=== PATIENT | male | born 1995 | race Caucasian/White ===

== ENCOUNTER 2018-11-03 19:08 | Emergency (ER) | payer MEDICAID ==
[~2018-11-03] VITALS: Ht 170.2 cm; Wt 85.1 kg
[~2018-11-03 19:08] MED LIST: CLON-285 PO; DIAZ10TA PO; GENT5DRO4 LEFTEYE; LEVE10002 PO; LOPE-144 PO; ONDA4TAB6 PO; OXCA600T25 PO; POTA8TAB8 PO
[2018-11-03 19:15] VITALS: BP 118/88
--- NOTE | 2018-11-03 19:24 | NUR ---
MILLICENT PHARMACIST FOR POISON CONTROL STATED " PATIENT CAN GET UP TO 6000MG BEFORE S/S OF OD, 3000MG IS NOT GOING TO BE A PROBLEM AND TO GIVE PATIENT POISON CONTROL 1-800 #."
== END 2018-11-03 20:02 | disposition home or self-care (01) ==
LOC: ER 19:08
DX: G40.909 Epilepsy, unspecified, not intractable, without status epilepticus (principal); Z79.899 Other long term (current) drug therapy
CPT/HCPCS: 93005; 99283

== ENCOUNTER 2019-04-27 19:16 | Emergency (ER) | payer MEDICAID ==
[~2019-04-27] VITALS: Ht 167.6 cm; Wt 82.0 kg
[2019-04-27 19:50] LABS: BASOPHILS % (AUTO) 0.3 % (0-1); EOSINOPHILS # (AUTO) 0.2 X10'3 (0-0.9); EOSINOPHILS % (AUTO) 1.4 % (0-6); HEMATOCRIT 41.2 % (42.0-52.0); HEMOGLOBIN 14.1 g/dl (14.0-17.9); LYMPHOCYTES # (AUTO) 2.9 X10'3 (1.1-4.8); LYMPHOCYTES % (AUTO) 19.3 % (21-51); MEAN CORPUSCULAR HEMOGLOBIN 30.4 PG (27.0-31.0); MEAN CORPUSCULAR HGB CONC 34.3 g/dL (33.0-36.5); MEAN CORPUSCULAR VOLUME 88.7 FL (78-98); MEAN PLATELET VOLUME 6.1 FL (7.4-10.4); MONOCYTES # (AUTO) 0.9 X10'3 (0-0.9); MONOCYTES % (AUTO) 6.4 % (2-12); NEUTROPHILS # (AUTO) 10.7 X10'3 (1.8-7.7); NEUTROPHILS % (AUTO) 72.6 % (42-75); PLATELET COUNT 449 X10'3 (140-440); RED BLOOD COUNT 4.65 X10'6 (4.70-6.10); RED CELL DISTRIBUTION WIDTH 13.4 % (11.5-14.5); WHITE BLOOD COUNT 14.8 X10'3 (4.5-11.0)
[2019-04-27 20:02] LABS: ALANINE AMINOTRANSFERASE 25 U/L (12-78); ALKALINE PHOSPHATASE 72 IU/L (46-116); ANION GAP 10 (8-16); ASPARTATE AMINO TRANSFERASE 17 U/L (10-37); BILIRUBIN,TOTAL 0.2 MG/DL (0.1-1.0); BLOOD UREA NITROGEN 10 MG/DL (7-18); BUN/CREATININE RATIO 9.8 (5.4-32.0); CALCIUM 8.8 MG/DL (8.5-10.1); CHLORIDE 97 MMOL/L (99-107); CREATININE 1.02 MG/DL (0.60-1.10); GLUCOSE 111 MG/DL (70-104); POTASSIUM 3.4 MMOL/L (3.5-5.1); SODIUM 134 MMOL/L (135-145); TOTAL CARBON DIOXIDE 27.4 MMOL/L (24-32); eGFR > 90 ML/MIN
[2019-04-27] MEDS ORDERED: ketorolac trometh inj. 60 MG/2 ML VIAL IM ONE (21:30)
[2019-04-27 22:22] VITALS: BP 122/77
--- NOTE | 2019-04-27 22:26 | NUR ---
IV STATUS CANCELLED. SAGAR DRUMMOND SAYS NOT NEEDED
== END 2019-04-27 22:27 | disposition home or self-care (01) ==
LOC: ER 19:16
DX: R07.89 Other chest pain (principal); R11.2 Nausea with vomiting, unspecified; R20.0 Anesthesia of skin; F41.9 Anxiety disorder, unspecified; F32.9 Major depressive disorder, single episode, unspecified; G40.909 Epilepsy, unspecified, not intractable, without status epilepticus; Z79.899 Other long term (current) drug therapy; Z98.890 Other specified postprocedural states
CPT/HCPCS: 36415; 71045; 80053; 84484; 85025; 93005; 96372; 99284; J1885; 99283

== ENCOUNTER 2019-06-17 19:07 | Emergency (ER) | payer MEDICAID ==
[~2019-06-17] VITALS: Ht 170.2 cm; Wt 81.8 kg
[2019-06-17 19:26] VITALS: BP 167/107
[2019-06-17 20:51] LABS: CLARITY,URINE CLEAR (Clear); COLOR,URINE YELLOW (Yellow); GLUCOSE, URINE NEGATIVE (Neg); KETONES,URINE 40 mg/dl (Neg); LEUKOCYTE ESTERASE ,URINE NEGATIVE (Neg); NITRITES, URINE NEGATIVE (Neg); OCCULT BLOOD,URINE NEGATIVE (Neg); PROTEIN,URINE NEGATIVE (Neg); UROBILINOGEN,URINE 0.2 E.U/dL (0.2-1.0)
[2019-06-17 20:52] LABS: UA COLLECTION TYPE CLN CATCH MIDSTREAM
[2019-06-17] MEDS ORDERED: KETO15CR2 TP (20:55)
[2019-06-17] MEDS ORDERED: MUPI22OI30 TOP (20:55)
== END 2019-06-17 21:12 | disposition home or self-care (01) ==
LOC: ER 19:09
DX: N48.1 Balanitis (principal); E86.0 Dehydration; F41.9 Anxiety disorder, unspecified; F32.9 Major depressive disorder, single episode, unspecified; Z86.69 Personal history of other diseases of the nervous system and sense organs; Z77.22 Contact with and (suspected) exposure to environmental tobacco smoke (acute) (chronic); Z79.899 Other long term (current) drug therapy
CPT/HCPCS: 81003; 99283

== ENCOUNTER 2019-06-23 09:29 | Emergency (ER) | payer MEDICAID ==
[~2019-06-23] VITALS: Ht 172.7 cm; Wt 83.0 kg
[~2019-06-23 09:29] MED LIST changes: +KETO15CR2 TP; +MUPI22OI30 TOP
[2019-06-23 09:32] VITALS: BP 123/88
[2019-06-23] MEDS ORDERED: COROTSUS OT (10:59)
[2019-06-23] MEDS ORDERED: AMOX500C2 PO (10:59)
== END 2019-06-23 10:56 | disposition home or self-care (01) ==
LOC: ER 09:29
DX: H60.91 Unspecified otitis externa, right ear (principal); H66.91 Otitis media, unspecified, right ear; Z79.899 Other long term (current) drug therapy
CPT/HCPCS: 99283

== ENCOUNTER 2019-06-26 20:11 | Emergency (ER) | payer MEDICAID ==
[~2019-06-26] VITALS: Ht 200.7 cm; Wt 82.0 kg
[~2019-06-26 20:11] MED LIST changes: +AMOX500C2 PO; +COROTSUS OT; -MUPI22OI30 TOP
[2019-06-26 20:25] VITALS: BP 138/82
[2019-06-26] MEDS ORDERED: AMOX-422 PO (21:31)
== END 2019-06-26 21:49 | disposition home or self-care (01) ==
LOC: ER 20:12
DX: H60.91 Unspecified otitis externa, right ear (principal); Z79.899 Other long term (current) drug therapy
CPT/HCPCS: 99283

== ENCOUNTER 2019-07-04 14:01 | Emergency (ER) | payer MEDICAID ==
[~2019-07-04] VITALS: Ht 170.2 cm; Wt 81.4 kg
[~2019-07-04 14:01] MED LIST changes: +AMOX-422 PO; -AMOX500C2 PO; -CLON-285 PO; +CLON-565 PO
[2019-07-04 14:13] VITALS: BP 137/82
[2019-07-04] MEDS ORDERED: ALBU6.7H9 INH (14:20)
[2019-07-04] MEDS ORDERED: BENZ-38 PO (14:20)
== END 2019-07-04 14:30 | disposition home or self-care (01) ==
LOC: ER 14:01
DX: J06.9 Acute upper respiratory infection, unspecified (principal); Z79.899 Other long term (current) drug therapy
CPT/HCPCS: 99283

== ENCOUNTER 2019-07-28 01:43 | Emergency (ER) | payer MEDICAID ==
[~2019-07-28] VITALS: Ht 170.2 cm; Wt 77.2 kg
[~2019-07-28 01:43] MED LIST changes: +ALBU6.7H9 INH; -AMOX-422 PO; +BENZ-38 PO
[2019-07-28] MEDS ORDERED: levetiracetam inj 1,500 MG in normal saline 100ml IV soln 85 ML IV STA (01:49)
[2019-07-28] MEDS ORDERED: normal saline 1000ML IV soln IVB ONE (01:50)
[2019-07-28] MEDS ORDERED: Levetiracetam-NS 500mg/100ml 100 ML IV STA (01:58)
[2019-07-28] MEDS ORDERED: levetiracetam-NS 1000mg/100ml 100 ML IV STA (01:58)
[2019-07-28] MEDS ORDERED: carBAMazepine 100mg chewable tablet PO ONE (02:00)
[2019-07-28] MEDS ORDERED: levetiracetam-NS 1000mg/100ml 100 ML IV ONE (02:00)
[2019-07-28] MEDS ORDERED: oxcarbazepine 150mg tablet PO STA (02:00)
[2019-07-28] MEDS ORDERED: OXCA300T16 PO (02:05)
[2019-07-28 02:29] LABS: CLARITY,URINE CLEAR (Clear); COLOR,URINE YELLOW (Yellow); GLUCOSE, URINE NEGATIVE (Neg); KETONES,URINE NEGATIVE (Neg); LEUKOCYTE ESTERASE ,URINE NEGATIVE (Neg); NITRITES, URINE NEGATIVE (Neg); OCCULT BLOOD,URINE TRACE-INTACT (Neg); PROTEIN,URINE TRACE mg/dl (Neg); UROBILINOGEN,URINE 0.2 E.U/dL (0.2-1.0)
[2019-07-28 02:35] LABS: BASOPHILS % (AUTO) 0.3 % (0-1); EOSINOPHILS # (AUTO) 0.3 X10'3 (0-0.9); EOSINOPHILS % (AUTO) 2.4 % (0-6); HEMATOCRIT 43.9 % (42.0-52.0); LYMPHOCYTES # (AUTO) 3.8 X10'3 (1.1-4.8); LYMPHOCYTES % (AUTO) 33.7 % (21-51); MEAN CORPUSCULAR HEMOGLOBIN 29.6 PG (27.0-31.0); MEAN CORPUSCULAR HGB CONC 34.1 g/dL (33.0-36.5); MEAN CORPUSCULAR VOLUME 86.9 FL (78-98); MONOCYTES # (AUTO) 1.2 X10'3 (0-0.9); MONOCYTES % (AUTO) 10.3 % (2-12); NEUTROPHILS % (AUTO) 53.3 % (42-75); PLATELET COUNT 415 X10'3 (140-440); RED BLOOD COUNT 5.05 X10'6 (4.70-6.10); RED CELL DISTRIBUTION WIDTH 13.1 % (11.5-14.5); WHITE BLOOD COUNT 11.4 X10'3 (4.5-11.0)
[2019-07-28 02:40] LABS: UA COLLECTION TYPE CLN CATCH MIDSTREAM
[2019-07-28 02:42] LABS: BACTERIA,URINE NONE SEEN /HPF (Neg); RBC,URINE NONE SEEN /HPF (0-2); SQUAMOUS EPITHELIAL CELL,UR NONE SEEN /LPF (FEW); WBC,URINE 0-4 /HPF (0-4)
[2019-07-28 02:45] LABS: ALANINE AMINOTRANSFERASE 32 U/L (12-78); ALBUMIN 4.5 G/DL (3.4-5.0); ALBUMIN/GLOBULIN RATIO 1.3 (1.1-1.5); ALKALINE PHOSPHATASE 88 IU/L (46-116); ANION GAP 12 (8-16); ASPARTATE AMINO TRANSFERASE 18 U/L (10-37); BILIRUBIN,TOTAL 0.1 MG/DL (0.1-1.0); BLOOD UREA NITROGEN 14 MG/DL (7-18); BUN/CREATININE RATIO 12.1 (5.4-32.0); CALCIUM 9.3 MG/DL (8.5-10.1); CHLORIDE 105 MMOL/L (99-107); CREATININE 1.16 MG/DL (0.60-1.10); GLUCOSE 107 MG/DL (70-104); POTASSIUM 4.1 MMOL/L (3.5-5.1); SODIUM 140 MMOL/L (135-145); TOTAL CARBON DIOXIDE 23.4 MMOL/L (24-32); TOTAL PROTEIN 7.9 G/DL (6.4-8.2); eGFR 79 ML/MIN
[2019-07-28 03:15] VITALS: BP 119/71
== END 2019-07-28 03:20 | disposition home or self-care (01) ==
LOC: ER 01:44
DX: R56.9 Unspecified convulsions (principal); F41.9 Anxiety disorder, unspecified; F32.9 Major depressive disorder, single episode, unspecified; Z79.899 Other long term (current) drug therapy
CPT/HCPCS: 36415; 80053; 81001; 85025; 96374; 99284; J1953; J7030; 96365

== ENCOUNTER 2020-03-30 16:49 | Emergency (ER) | payer MEDICAID ==
[~2020-03-30] VITALS: Ht 167.6 cm; Wt 81.8 kg
[~2020-03-30 16:49] MED LIST changes: -BENZ-38 PO; +OXCA300T16 PO
[2020-03-30 19:10] LABS: CLARITY,URINE CLEAR (Clear); COLOR,URINE YELLOW (Yellow); GLUCOSE, URINE NEGATIVE (Neg); KETONES,URINE NEGATIVE (Neg); LEUKOCYTE ESTERASE ,URINE NEGATIVE (Neg); NITRITES, URINE NEGATIVE (Neg); OCCULT BLOOD,URINE NEGATIVE (Neg); PH,URINE 6.5 (4.8-8.0); PROTEIN,URINE NEGATIVE (Neg); UROBILINOGEN,URINE 0.2 E.U/dL (0.2-1.0)
[2020-03-30 19:11] LABS: UA COLLECTION TYPE CLN CATCH MIDSTREAM
[2020-03-30 19:29] VITALS: BP 140/90
== END 2020-03-30 19:31 | disposition home or self-care (01) ==
LOC: ER 16:50
DX: N50.812 Left testicular pain (principal); F41.9 Anxiety disorder, unspecified; F32.9 Major depressive disorder, single episode, unspecified; Z86.69 Personal history of other diseases of the nervous system and sense organs; Z79.2 Long term (current) use of antibiotics; Z79.899 Other long term (current) drug therapy
CPT/HCPCS: 76870; 81003; 93976; 99284

== ENCOUNTER 2020-07-31 18:17 | Emergency (ER) | payer MEDICAID ==
[~2020-07-31] VITALS: Ht 167.6 cm; Wt 83.5 kg
[2020-07-31 18:33] VITALS: BP 141/87
[2020-07-31] MEDS ORDERED: PENI500T2 PO (20:49)
[2020-07-31] MEDS ORDERED: IBUP-1984 PO (20:49)
== END 2020-07-31 20:59 | disposition home or self-care (01) ==
LOC: ER 18:18
DX: K04.7 Periapical abscess without sinus (principal); R22.0 Localized swelling, mass and lump, head; Z79.2 Long term (current) use of antibiotics; Z79.899 Other long term (current) drug therapy; Z86.61 Personal history of infections of the central nervous system
CPT/HCPCS: 70450; 70486; 99285

== ENCOUNTER 2020-10-09 13:42 | Emergency (ER) | payer MEDICAID ==
[~2020-10-09] VITALS: Ht 170.2 cm; Wt 78.2 kg
[2020-10-09 13:47] VITALS: BP 124/83
[2020-10-09 14:18] LABS: CLARITY,URINE CLEAR (Clear); COLOR,URINE YELLOW (Yellow); GLUCOSE, URINE NEGATIVE (Neg); KETONES,URINE NEGATIVE (Neg); LEUKOCYTE ESTERASE ,URINE NEGATIVE (Neg); NITRITES, URINE NEGATIVE (Neg); OCCULT BLOOD,URINE NEGATIVE (Neg); PROTEIN,URINE NEGATIVE (Neg); UROBILINOGEN,URINE 0.2 E.U/dL (0.2-1.0)
[2020-10-09 14:24] LABS: UA COLLECTION TYPE CLN CATCH MIDSTREAM
[2020-10-09 14:26] LABS: BASOPHILS % (AUTO) 0.6 % (0-1); EOSINOPHILS # (AUTO) 0.1 X10'3 (0-0.9); EOSINOPHILS % (AUTO) 2.1 % (0-6); HEMATOCRIT 44.9 % (42.0-52.0); HEMOGLOBIN 15.5 g/dl (14.0-17.9); LYMPHOCYTES # (AUTO) 2.2 X10'3 (1.1-4.8); LYMPHOCYTES % (AUTO) 31.9 % (21-51); MEAN CORPUSCULAR HEMOGLOBIN 30.3 PG (27.0-31.0); MEAN CORPUSCULAR HGB CONC 34.5 g/dL (33.0-36.5); MEAN CORPUSCULAR VOLUME 87.9 FL (78-98); MEAN PLATELET VOLUME 6.8 FL (7.4-10.4); MONOCYTES # (AUTO) 0.6 X10'3 (0-0.9); MONOCYTES % (AUTO) 9.2 % (2-12); NEUTROPHILS % (AUTO) 56.2 % (42-75); PLATELET COUNT 351 X10'3 (140-440); RED BLOOD COUNT 5.11 X10'6 (4.70-6.10); RED CELL DISTRIBUTION WIDTH 13.4 % (11.5-14.5)
[2020-10-09 14:31] LABS: ALANINE AMINOTRANSFERASE 26 U/L (12-78); ALBUMIN 4.5 G/DL (3.4-5.0); ALBUMIN/GLOBULIN RATIO 1.2 (1.1-1.5); ALKALINE PHOSPHATASE 93 IU/L (46-116); ANION GAP 10 (8-16); ASPARTATE AMINO TRANSFERASE 19 U/L (10-37); BILIRUBIN,TOTAL 0.2 MG/DL (0.1-1.0); BLOOD UREA NITROGEN 11 MG/DL (7-18); BUN/CREATININE RATIO 11.1 (5.4-32.0); CALCIUM 8.9 MG/DL (8.5-10.1); CHLORIDE 101 MMOL/L (99-107); CREATININE 0.99 MG/DL (0.60-1.10); GLUCOSE 95 MG/DL (70-104); LIPASE 93 U/L (73-393); POTASSIUM 3.7 MMOL/L (3.5-5.1); SODIUM 140 MMOL/L (135-145); TOTAL CARBON DIOXIDE 28.9 MMOL/L (24-32); TOTAL PROTEIN 8.4 G/DL (6.4-8.2); eGFR > 90 ML/MIN
[2020-10-09] MEDS ORDERED: POLY17PO10 PO (15:51)
[2020-10-09] MEDS ORDERED: PANT-47 PO (15:51)
== END 2020-10-09 16:11 | disposition home or self-care (01) ==
LOC: ER 13:43
DX: G89.29 Other chronic pain (principal); R10.12 Left upper quadrant pain; F41.9 Anxiety disorder, unspecified; F32.9 Major depressive disorder, single episode, unspecified; Z98.890 Other specified postprocedural states; Z86.69 Personal history of other diseases of the nervous system and sense organs; Z79.899 Other long term (current) drug therapy
CPT/HCPCS: 36415; 80053; 81003; 83690; 85025; 99283

== ENCOUNTER 2020-12-02 11:12 | Emergency (ER) | payer MEDICAID ==
[~2020-12-02] VITALS: Ht 170.2 cm; Wt 84.1 kg
[~2020-12-02 11:12] MED LIST changes: +PANT-47 PO
[2020-12-02 11:24] VITALS: BP 112/78
[2020-12-02] MEDS ORDERED: NEOM10DR45 OT (12:42)
== END 2020-12-02 12:49 | disposition home or self-care (01) ==
LOC: ER 11:12
DX: H60.91 Unspecified otitis externa, right ear (principal); M54.2 Cervicalgia; G40.909 Epilepsy, unspecified, not intractable, without status epilepticus; Z98.890 Other specified postprocedural states; Z79.2 Long term (current) use of antibiotics; Z79.899 Other long term (current) drug therapy
CPT/HCPCS: 99283

== ENCOUNTER 2021-10-27 00:03 | Emergency (ER) | payer MEDICAID ==
[~2021-10-27] VITALS: Ht 170.2 cm; Wt 79.5 kg
[2021-10-27] MEDS ORDERED: TETanus/Pertussis (Acell)/Diphther VAC/PF (Tdap-Adult) 0.5ml syringe IMVAC ONE (01:15)
[2021-10-27] MEDS ORDERED: amox tr/potassium clavulanate 875/125mg TAB PO ONE (01:15)
[2021-10-27] MEDS ORDERED: AMOX-117 PO (01:15)
[2021-10-27 01:50] VITALS: BP 129/80
== END 2021-10-27 01:52 | disposition home or self-care (01) ==
LOC: ER 00:04
DX: S61.402A Unspecified open wound of left hand, initial encounter (principal); K21.9 Gastro-esophageal reflux disease without esophagitis; F41.9 Anxiety disorder, unspecified; F32.A Depression, unspecified; Z86.69 Personal history of other diseases of the nervous system and sense organs; Z98.890 Other specified postprocedural states; Z79.2 Long term (current) use of antibiotics; Z20.3 Contact with and (suspected) exposure to rabies; Z79.899 Other long term (current) drug therapy; W54.0XXA Bitten by dog, initial encounter; Y93.89 Activity, other specified; Y92.89 Other specified places as the place of occurrence of the external cause; Y99.8 Other external cause status
CPT/HCPCS: 90471; 90715; 99283

== ENCOUNTER 2021-11-21 01:54 | Emergency (ER) | payer MEDICAID ==
[~2021-11-21] VITALS: Ht 170.2 cm; Wt 85.1 kg
--- NOTE | 2021-11-21 02:44 | NUR ---
pt roomed in bed 14. assumed care of pt.
[2021-11-21 04:42] VITALS: BP 120/78
== END 2021-11-21 04:44 | disposition home or self-care (01) ==
LOC: ER 01:54
DX: R42 Dizziness and giddiness (principal); T42.6X5A Adverse effect of other antiepileptic and sedative-hypnotic drugs, initial encounter; R07.89 Other chest pain; K21.9 Gastro-esophageal reflux disease without esophagitis; F41.9 Anxiety disorder, unspecified; F32.9 Major depressive disorder, single episode, unspecified; Z98.890 Other specified postprocedural states; Z79.899 Other long term (current) drug therapy; Y92.89 Other specified places as the place of occurrence of the external cause
CPT/HCPCS: 93005; 99284

== ENCOUNTER 2022-04-04 00:47 | Emergency (ER) | payer MEDICAID ==
[~2022-04-04] VITALS: Ht 167.6 cm; Wt 75.0 kg
[~2022-04-04 00:47] MED LIST changes: +ALBU6.7H14 INH; -ALBU6.7H9 INH
[2022-04-04 01:15] VITALS: BP 126/84
== END 2022-04-04 04:46 | disposition left against medical advice (07) ==
LOC: ER 00:48
DX: K92.1 Melena (principal); Z53.21 Procedure and treatment not carried out due to patient leaving prior to being seen by health care provider

== ENCOUNTER 2022-06-05 10:13 | Emergency (ER) | payer MEDICAID ==
[~2022-06-05] VITALS: Ht 170.2 cm; Wt 83.2 kg
[2022-06-05 10:21] VITALS: BP 114/78
[2022-06-05 11:10] LABS: ALANINE AMINOTRANSFERASE 29 U/L (12-78); ALBUMIN 3.5 G/DL (3.4-5.0); ALBUMIN/GLOBULIN RATIO 0.9 (1.1-1.5); ALKALINE PHOSPHATASE 64 IU/L (46-116); ASPARTATE AMINO TRANSFERASE 21 U/L (10-37); BASOPHILS % (AUTO) 0.2 % (0-1); BILIRUBIN,TOTAL 0.2 MG/DL (0.1-1.0); BLOOD UREA NITROGEN 12 MG/DL (7-18); BUN/CREATININE RATIO 11.9 (5.4-32.0); CALCIUM 8.1 MG/DL (8.5-10.1); CHLORIDE 98 MMOL/L (99-107); CREATININE 1.01 MG/DL (0.60-1.10); EOSINOPHILS # (AUTO) 0.1 X10'3 (0-0.9); EOSINOPHILS % (AUTO) 1.2 % (0-6); GLUCOSE 101 MG/DL (70-104); HEMATOCRIT 43.9 % (42.0-52.0); HEMOGLOBIN 14.9 g/dl (14.0-17.9); LYMPHOCYTES # (AUTO) 1.1 X10'3 (1.1-4.8); LYMPHOCYTES % (AUTO) 14.9 % (21-51); MEAN CORPUSCULAR HEMOGLOBIN 29.1 PG (27.0-31.0); MEAN CORPUSCULAR HGB CONC 33.8 g/dL (33.0-36.5); MEAN CORPUSCULAR VOLUME 86.2 FL (78-98); MEAN PLATELET VOLUME 6.4 FL (7.4-10.4); MONOCYTES % (AUTO) 13.8 % (2-12); NEUTROPHILS # (AUTO) 5.1 X10'3 (1.8-7.7); NEUTROPHILS % (AUTO) 69.9 % (42-75); PLATELET COUNT 274 X10'3 (140-440); POTASSIUM 3.4 MMOL/L (3.5-5.1); RED CELL DISTRIBUTION WIDTH 12.9 % (11.5-14.5); TOTAL PROTEIN 7.3 G/DL (6.4-8.2); WHITE BLOOD COUNT 7.3 X10'3 (4.5-11.0); eGFR > 90 ML/MIN
[2022-06-05 11:21] LABS: ANION GAP 12 (8-16); SODIUM 132 MMOL/L (135-145)
[2022-06-05] MEDS ORDERED: POTASSIUM BICARBONATE/CIT AC 10 MEQ TABLET.EFF PO STA (16:48)
== END 2022-06-05 17:04 | disposition home or self-care (01) ==
LOC: ER 10:13
DX: R07.89 Other chest pain (principal); M25.512 Pain in left shoulder; R06.02 Shortness of breath; F41.9 Anxiety disorder, unspecified; K21.9 Gastro-esophageal reflux disease without esophagitis; F32.A Depression, unspecified; Z86.69 Personal history of other diseases of the nervous system and sense organs; Z98.890 Other specified postprocedural states; Z79.899 Other long term (current) drug therapy
CPT/HCPCS: 36415; 71045; 80053; 83880; 84484; 85025; 93005; 99285

== ENCOUNTER 2022-09-25 05:20 | Emergency (ER) | payer MEDICAID ==
[~2022-09-25] VITALS: Ht 170.2 cm; Wt 83.2 kg
[~2022-09-25 05:20] MED LIST changes: +GENT5DRO22 LEFTEYE; -GENT5DRO4 LEFTEYE
[2022-09-25 06:25] LABS: CLARITY,URINE CLEAR (Clear); COLOR,URINE YELLOW (Yellow); GLUCOSE, URINE NEGATIVE (Neg); KETONES,URINE NEGATIVE (Neg); LEUKOCYTE ESTERASE ,URINE NEGATIVE (Neg); NITRITES, URINE NEGATIVE (Neg); OCCULT BLOOD,URINE TRACE-INTACT (Neg); PROTEIN,URINE NEGATIVE (Neg); UROBILINOGEN,URINE 0.2 E.U/dL (0.2-1.0)
[2022-09-25 06:26] LABS: UA COLLECTION TYPE CLN CATCH MIDSTREAM
[2022-09-25 06:41] LABS: SQUAMOUS EPITHELIAL CELL,UR FEW /LPF (FEW)
[2022-09-25 06:42] LABS: BACTERIA,URINE FEW /HPF (Neg); RBC,URINE 0-2 /HPF (0-2); WBC,URINE 0-4 /HPF (0-4)
[2022-09-25 06:50] VITALS: BP 129/81
== END 2022-09-25 07:28 | disposition home or self-care (01) ==
LOC: ER 05:21
DX: R10.32 Left lower quadrant pain (principal); K21.9 Gastro-esophageal reflux disease without esophagitis
CPT/HCPCS: 76870; 81001; 93976; 99284

== ENCOUNTER 2022-11-21 19:25 | Emergency (ER) | payer MEDICAID ==
[~2022-11-21] VITALS: Ht 170.2 cm; Wt 88.4 kg
[2022-11-21 19:28] VITALS: BP 128/78
[2022-11-21 20:05] LABS: BASOPHILS # (AUTO) 0.1 X10'3 (0-0.2); BASOPHILS % (AUTO) 0.6 % (0-1); EOSINOPHILS # (AUTO) 0.2 X10'3 (0-0.9); EOSINOPHILS % (AUTO) 1.6 % (0-6); HEMATOCRIT 44.4 % (42.0-52.0); HEMOGLOBIN 15.1 g/dl (14.0-17.9); LYMPHOCYTES # (AUTO) 3.3 X10'3 (1.1-4.8); LYMPHOCYTES % (AUTO) 30.8 % (21-51); MEAN CORPUSCULAR HEMOGLOBIN 29.4 PG (27.0-31.0); MEAN CORPUSCULAR VOLUME 86.5 FL (78-98); MEAN PLATELET VOLUME 6.4 FL (7.4-10.4); MONOCYTES # (AUTO) 1.1 X10'3 (0-0.9); MONOCYTES % (AUTO) 9.9 % (2-12); NEUTROPHILS # (AUTO) 6.1 X10'3 (1.8-7.7); NEUTROPHILS % (AUTO) 57.1 % (42-75); PLATELET COUNT 328 X10'3 (140-440); RED BLOOD COUNT 5.14 X10'6 (4.70-6.10); RED CELL DISTRIBUTION WIDTH 13.2 % (11.5-14.5); WHITE BLOOD COUNT 10.7 X10'3 (4.5-11.0)
[2022-11-21 20:09] LABS: CLARITY,URINE CLEAR (Clear); COLOR,URINE YELLOW (Yellow); GLUCOSE, URINE NEGATIVE (Neg); KETONES,URINE NEGATIVE (Neg); LEUKOCYTE ESTERASE ,URINE NEGATIVE (Neg); NITRITES, URINE NEGATIVE (Neg); OCCULT BLOOD,URINE NEGATIVE (Neg); PROTEIN,URINE NEGATIVE (Neg); UROBILINOGEN,URINE 0.2 E.U/dL (0.2-1.0)
[2022-11-21 20:11] LABS: UA COLLECTION TYPE CLN CATCH MIDSTREAM
[2022-11-21 20:20] LABS: ALANINE AMINOTRANSFERASE 42 U/L (12-78); ALBUMIN 4.3 G/DL (3.4-5.0); ALBUMIN/GLOBULIN RATIO 1.3 (1.1-1.5); ALKALINE PHOSPHATASE 72 IU/L (46-116); ANION GAP 7 (8-16); ASPARTATE AMINO TRANSFERASE 28 U/L (10-37); BLOOD UREA NITROGEN 13 MG/DL (7-18); BUN/CREATININE RATIO 11.9 (10.0-20.0); CALCIUM 9.1 MG/DL (8.5-10.1); CHLORIDE 101 MMOL/L (99-107); CREATININE 1.09 MG/DL (0.60-1.10); GLUCOSE 82 MG/DL (70-104); LIPASE 124 U/L (73-393); POTASSIUM 3.9 MMOL/L (3.5-5.1); SODIUM 136 MMOL/L (135-145); TOTAL PROTEIN 7.7 G/DL (6.4-8.2); eGFR 82 ML/MIN
[2022-11-21 20:34] LABS: BILIRUBIN,TOTAL 0.1 MG/DL (0.1-1.0)
== END 2022-11-21 20:13 | disposition home or self-care (01) ==
LOC: ER 19:26
DX: G89.29 Other chronic pain (principal); R10.32 Left lower quadrant pain; F41.9 Anxiety disorder, unspecified; K21.9 Gastro-esophageal reflux disease without esophagitis; Z79.899 Other long term (current) drug therapy; Z79.1 Long term (current) use of non-steroidal anti-inflammatories (NSAID)
CPT/HCPCS: 36415; 80053; 81003; 83690; 85025; 99283

== ENCOUNTER 2022-11-30 14:41 | Emergency (ER) | payer MEDICAID ==
[~2022-11-30] VITALS: Ht 170.2 cm; Wt 88.6 kg
[2022-11-30 14:43] VITALS: BP 139/85
[2022-11-30] MEDS ORDERED: LEVE10002 PO (15:20)
[2022-11-30] MEDS ORDERED: OXCA600T9 PO (15:20)
[2022-11-30] MEDS ORDERED: OXCA300T16 PO (15:20)
== END 2022-11-30 15:53 | disposition home or self-care (01) ==
LOC: ER 14:41
DX: R56.9 Unspecified convulsions (principal); K21.9 Gastro-esophageal reflux disease without esophagitis; F31.9 Bipolar disorder, unspecified; Z79.899 Other long term (current) drug therapy
CPT/HCPCS: 99281

== ENCOUNTER 2023-04-07 11:45 | Emergency (ER) | payer MEDICAID ==
[~2023-04-07] VITALS: Ht 167.6 cm; Wt 90.0 kg
[~2023-04-07 11:45] MED LIST changes: +DIAZ-546 PO; -DIAZ10TA PO; +OXCA600T9 PO
[2023-04-07 11:53] VITALS: TEMP 97.8
[2023-04-07 15:19] VITALS: BP 120/81; PULSE 89; RESP 16; O2SAT 97
== END 2023-04-07 17:36 | disposition home or self-care (01) ==
LOC: ER 11:46
DX: R22.0 Localized swelling, mass and lump, head (principal); F31.9 Bipolar disorder, unspecified; Z79.899 Other long term (current) drug therapy; Z79.1 Long term (current) use of non-steroidal anti-inflammatories (NSAID); Z79.2 Long term (current) use of antibiotics
CPT/HCPCS: 99281

== ENCOUNTER 2023-06-05 03:56 | Emergency (ER) | payer MEDICAID ==
[~2023-06-05] VITALS: Ht 170.2 cm; Wt 84.0 kg
[2023-06-05 04:24] VITALS: BP 123/74; PULSE 88; RESP 16; TEMP 98; O2SAT 98
== END 2023-06-05 04:25 | disposition home or self-care (01) ==
LOC: ER 03:56
DX: S60.561A Insect bite (nonvenomous) of right hand, initial encounter (principal); Z79.2 Long term (current) use of antibiotics; Z79.899 Other long term (current) drug therapy; W57.XXXA Bitten or stung by nonvenomous insect and other nonvenomous arthropods, initial encounter; Y93.89 Activity, other specified; Y92.89 Other specified places as the place of occurrence of the external cause; Y99.8 Other external cause status
CPT/HCPCS: 99282

== ENCOUNTER 2024-02-13 16:26 | Emergency (ER) | payer MEDICAID ==
[~2024-02-13] VITALS: Ht 167.6 cm; Wt 87.9 kg
[~2024-02-13 16:26] MED LIST changes: +GEN0.3OS LEFTEYE; -GENT5DRO22 LEFTEYE
[2024-02-13] MEDS ORDERED: AMOX-117 PO (17:07)
[2024-02-13] MEDS ORDERED: PRED10TA23 PO (17:07)
[2024-02-13 17:45] LABS: BASOPHILS # (AUTO) 0.1 X10'3 (0-0.2); BASOPHILS % (AUTO) 1.4 % (0-1); EOSINOPHILS # (AUTO) 0.2 X10'3 (0-0.9); EOSINOPHILS % (AUTO) 1.7 % (0-6); HEMATOCRIT 41.9 % (42.0-52.0); HEMOGLOBIN 14.8 g/dl (14.0-17.9); LYMPHOCYTES # (AUTO) 1.2 X10'3 (1.1-4.8); LYMPHOCYTES % (AUTO) 10.7 % (21-51); MEAN CORPUSCULAR HEMOGLOBIN 29.8 PG (27.0-31.0); MEAN CORPUSCULAR HGB CONC 35.2 g/dL (33.0-36.5); MEAN CORPUSCULAR VOLUME 84.7 FL (78-98); MEAN PLATELET VOLUME 5.9 FL (7.4-10.4); MONOCYTES # (AUTO) 1.1 X10'3 (0-0.9); MONOCYTES % (AUTO) 10.6 % (2-12); NEUTROPHILS # (AUTO) 8.1 X10'3 (1.8-7.7); NEUTROPHILS % (AUTO) 75.6 % (42-75); PLATELET COUNT 546 X10'3 (140-440); RED BLOOD COUNT 4.95 X10'6 (4.70-6.10); RED CELL DISTRIBUTION WIDTH 12.9 % (11.5-14.5); WHITE BLOOD COUNT 10.8 X10'3 (4.5-11.0)
[2024-02-13 17:56] LABS: ALANINE AMINOTRANSFERASE 28 U/L (12-78); ALBUMIN 3.8 G/DL (3.4-5.0); ALBUMIN/GLOBULIN RATIO 0.8 (1.1-1.5); ALKALINE PHOSPHATASE 90 IU/L (46-116); ANION GAP 11 (8-16); ASPARTATE AMINO TRANSFERASE 28 U/L (10-37); BILIRUBIN,TOTAL 0.3 MG/DL (0.1-1.0); BLOOD UREA NITROGEN 8 MG/DL (7-18); BUN/CREATININE RATIO 8.6 (10.0-20.0); CALCIUM 8.8 MG/DL (8.5-10.1); CHLORIDE 96 MMOL/L (99-107); CREATININE 0.93 MG/DL (0.60-1.10); GLUCOSE 89 MG/DL (70-104); LIPASE 34 U/L (16-77); POTASSIUM 3.4 MMOL/L (3.5-5.1); SODIUM 133 MMOL/L (135-145); TOTAL CARBON DIOXIDE 25.6 MMOL/L (24-32); TOTAL PROTEIN 8.3 G/DL (6.4-8.2); eCRCL 109 ML/MIN; eGFR > 90 ML/MIN
[2024-02-13 18:32] VITALS: PULSE 97
[2024-02-13] MEDS: amox tr/potassium clavulanate 875/125mg TAB PO ONE (18:42)
[2024-02-13] MEDS: dexamethasone sod phosphate 10mg/ml inj PO STA (18:42)
[2024-02-13 18:48] VITALS: BP 114/76; RESP 15; TEMP 98.4; O2SAT 99
== END 2024-02-13 18:50 | disposition home or self-care (01) ==
LOC: ER 16:27
DX: J20.9 Acute bronchitis, unspecified (principal); K21.9 Gastro-esophageal reflux disease without esophagitis; F32.A Depression, unspecified; Z79.899 Other long term (current) drug therapy; Z79.2 Long term (current) use of antibiotics
CPT/HCPCS: 71045; 80053; 83690; 85025; 99284; J1100

== ENCOUNTER 2024-02-18 15:59 | Emergency (ER) | payer MEDICAID ==
[~2024-02-18] VITALS: Ht 170.2 cm; Wt 90.9 kg
[~2024-02-18 15:59] MED LIST changes: +AMOX-117 PO; +PRED10TA23 PO
[2024-02-18] MEDS ORDERED: AZIT250T83 PO (16:45)
[2024-02-18] MEDS ORDERED: HYDR-3965 PO (16:45)
[2024-02-18] MEDS ORDERED: ALBU8HFA INH (16:45)
[2024-02-18 16:49] LABS: STREP A SCREEN NEGATIVE (Neg)
[2024-02-18] MEDS: CefTRIAXone 1000mg IM Kit (w/lidocaine diluent) IM ONE (16:51)
[2024-02-18] MEDS: ketorolac trometh 15mg/ml vial 15 MG/ML ML IM ONE (16:51)
[2024-02-18 17:01] VITALS: BP 104/62; PULSE 80; RESP 18; TEMP 98.7; O2SAT 96
== END 2024-02-18 17:07 | disposition home or self-care (01) ==
LOC: ER 15:59
DX: J18.9 Pneumonia, unspecified organism (principal); Z20.822 Contact with and (suspected) exposure to COVID-19; F41.9 Anxiety disorder, unspecified; F32.A Depression, unspecified; Z98.890 Other specified postprocedural states; Z79.2 Long term (current) use of antibiotics; Z79.899 Other long term (current) drug therapy
CPT/HCPCS: 36415; 71045; 87081; 87811; 87880; 96372; 99284; J0696; J1885

== ENCOUNTER 2024-02-28 14:27 | Emergency (ER) | payer MEDICAID ==
[~2024-02-28] VITALS: Ht 348 cm; Wt 87.0 kg
[~2024-02-28 14:27] MED LIST changes: +ALBU8HFA INH; -AMOX-117 PO; +HYDR-3965 PO; -PRED10TA23 PO
[2024-02-28] MEDS: ketorolac trometh 30MG/ML vial 30 MG/ML VIAL IM ONE (16:00)
[2024-02-28] MEDS: dexamethasone sod phosphate 10mg/ml inj IM STA (16:00)
[2024-02-28 16:12] VITALS: BP 121/78; PULSE 87; RESP 15; TEMP 98.9; O2SAT 99
== END 2024-02-28 16:14 | disposition home or self-care (01) ==
LOC: ER 14:27
DX: M94.0 Chondrocostal junction syndrome [Tietze] (principal); K21.9 Gastro-esophageal reflux disease without esophagitis; F32.A Depression, unspecified; Z79.899 Other long term (current) drug therapy; Z79.2 Long term (current) use of antibiotics
CPT/HCPCS: 71045; 96372; 99284; J1100; J1885

== ENCOUNTER 2024-03-07 18:34 | Emergency (ER) | payer MEDICAID ==
[~2024-03-07] VITALS: Ht 170.2 cm; Wt 88.6 kg
[2024-03-07 18:43] VITALS: BP 135/89; PULSE 93; TEMP 97.8; O2SAT 98
[2024-03-07 19:48] LABS: BILIRUBIN,URINE NEGATIVE (Neg); CLARITY,URINE CLEAR (Clear); COLOR,URINE YELLOW (Yellow); GLUCOSE, URINE NEGATIVE (Neg); KETONES,URINE NEGATIVE (Neg); LEUKOCYTE ESTERASE ,URINE NEGATIVE (Neg); NITRITES, URINE NEGATIVE (Neg); OCCULT BLOOD,URINE TRACE-INTACT (Neg); PROTEIN,URINE NEGATIVE (Neg); UROBILINOGEN,URINE 0.2 E.U/dL (0.2-1.0)
[2024-03-07 19:54] LABS: UA COLLECTION TYPE VOIDED
[2024-03-07 19:59] LABS: RBC,URINE 0-2 /HPF (0-2); WBC,URINE 0-4 /HPF (0-4)
[2024-03-07 20:00] LABS: BACTERIA,URINE NONE SEEN /HPF (Neg); MUCUS STRANDS NONE SEEN /LPF (Neg); SQUAMOUS EPITHELIAL CELL,UR NONE SEEN /LPF (FEW)
[2024-03-07] MEDS ORDERED: NYST30CR34 TOP (20:12)
[2024-03-07 20:33] VITALS: RESP 16
== END 2024-03-07 20:34 | disposition home or self-care (01) ==
LOC: ER 18:35
DX: N48.1 Balanitis (principal); K21.9 Gastro-esophageal reflux disease without esophagitis; F41.9 Anxiety disorder, unspecified; F32.A Depression, unspecified; Z79.899 Other long term (current) drug therapy; Z79.2 Long term (current) use of antibiotics
CPT/HCPCS: 36415; 81001; 82948; 87491; 99283

== ENCOUNTER 2024-03-14 08:42 | Emergency (ER) | payer MEDICAID ==
[~2024-03-14] VITALS: Ht 170.2 cm; Wt 88.9 kg
[~2024-03-14 08:42] MED LIST changes: +NYST30CR34 TOP
[2024-03-14 09:25] LABS: BASOPHILS % (AUTO) 0.5 % (0-1); EOSINOPHILS # (AUTO) 0.2 X10'3 (0-0.9); EOSINOPHILS % (AUTO) 1.8 % (0-6); HEMATOCRIT 45.3 % (42.0-52.0); HEMOGLOBIN 15.1 g/dl (14.0-17.9); LYMPHOCYTES # (AUTO) 1.9 X10'3 (1.1-4.8); LYMPHOCYTES % (AUTO) 18.2 % (21-51); MEAN CORPUSCULAR HEMOGLOBIN 29.2 PG (27.0-31.0); MEAN CORPUSCULAR HGB CONC 33.5 g/dL (33.0-36.5); MEAN CORPUSCULAR VOLUME 87.4 FL (78-98); MEAN PLATELET VOLUME 6.4 FL (7.4-10.4); MONOCYTES # (AUTO) 1.1 X10'3 (0-0.9); MONOCYTES % (AUTO) 10.5 % (2-12); PLATELET COUNT 312 X10'3 (140-440); RED BLOOD COUNT 5.18 X10'6 (4.70-6.10); RED CELL DISTRIBUTION WIDTH 13.8 % (11.5-14.5); WHITE BLOOD COUNT 10.2 X10'3 (4.5-11.0)
[2024-03-14 09:50] LABS: ALBUMIN 4.2 G/DL (3.4-5.0); ANION GAP 11 (8-16); BLOOD UREA NITROGEN 9 MG/DL (7-18); BUN/CREATININE RATIO 9.4 (10.0-20.0); CALCIUM 9.5 MG/DL (8.5-10.1); CHLORIDE 104 MMOL/L (99-107); CREATININE 0.96 MG/DL (0.60-1.10); GLUCOSE 97 MG/DL (70-104); POTASSIUM 3.9 MMOL/L (3.5-5.1); SODIUM 141 MMOL/L (135-145); TOTAL CARBON DIOXIDE 26.1 MMOL/L (24-32); eCRCL 109 ML/MIN; eGFR > 90 ML/MIN
[2024-03-14 11:34] LABS: BILIRUBIN,URINE NEGATIVE (Neg); CLARITY,URINE SLIGHTLY CLOUDY (Clear); COLOR,URINE YELLOW (Yellow); GLUCOSE, URINE NEGATIVE (Neg); KETONES,URINE NEGATIVE (Neg); LEUKOCYTE ESTERASE ,URINE NEGATIVE (Neg); NITRITES, URINE NEGATIVE (Neg); OCCULT BLOOD,URINE NEGATIVE (Neg); PROTEIN,URINE NEGATIVE (Neg); UROBILINOGEN,URINE 0.2 E.U/dL (0.2-1.0)
[2024-03-14 11:41] VITALS: TEMP 97.8
[2024-03-14 11:45] LABS: SQUAMOUS EPITHELIAL CELL,UR FEW /LPF (FEW); UA COLLECTION TYPE VOIDED
[2024-03-14 11:46] LABS: AMORPHOUS URATES 1+; BACTERIA,URINE NONE SEEN /HPF (Neg); RBC,URINE 0-2 /HPF (0-2); WBC,URINE 0-4 /HPF (0-4)
[2024-03-14 12:32] VITALS: BP 119/66; PULSE 82; RESP 16; O2SAT 99
== END 2024-03-14 12:33 | disposition home or self-care (01) ==
LOC: ER 08:43
DX: G40.802 Other epilepsy, not intractable, without status epilepticus (principal); K21.9 Gastro-esophageal reflux disease without esophagitis; F41.9 Anxiety disorder, unspecified; F32.A Depression, unspecified; Z79.899 Other long term (current) drug therapy; Z79.2 Long term (current) use of antibiotics; Z98.890 Other specified postprocedural states
CPT/HCPCS: 36415; 71045; 80048; 81001; 84484; 85025; 99284

== ENCOUNTER 2024-03-17 22:57 | Emergency (ER) | payer MEDICAID ==
[~2024-03-17] VITALS: Ht 170.2 cm; Wt 90.3 kg
[2024-03-18 00:41] VITALS: BP 124/87; PULSE 64; O2SAT 97
[2024-03-18 00:55] VITALS: RESP 15
[2024-03-18] MEDS: ketorolac trometh 30MG/ML vial 30 MG/ML VIAL IM ONE (00:55)
[2024-03-18 00:57] VITALS: TEMP 98.4
== END 2024-03-18 01:04 | disposition home or self-care (01) ==
LOC: ER 22:58
DX: R51.9 Headache, unspecified (principal); K21.9 Gastro-esophageal reflux disease without esophagitis; F41.9 Anxiety disorder, unspecified; F32.A Depression, unspecified; Z79.899 Other long term (current) drug therapy
CPT/HCPCS: 96372; 99283; J1885

== ENCOUNTER 2024-06-03 13:59 | Emergency (ER) | payer MEDICAID ==
[~2024-06-03] VITALS: Ht 170.2 cm; Wt 89.0 kg
[~2024-06-03 13:59] MED LIST changes: -ALBU8HFA INH; -HYDR-3965 PO
[2024-06-03 14:06] VITALS: TEMP 98.1
[2024-06-03 17:21] VITALS: BP 113/68; PULSE 84; RESP 16; O2SAT 100
== END 2024-06-03 17:32 | disposition home or self-care (01) ==
LOC: ER 14:01
DX: N50.811 Right testicular pain (principal); K21.9 Gastro-esophageal reflux disease without esophagitis; Z79.899 Other long term (current) drug therapy
CPT/HCPCS: 76870; 93976; 99284

== ENCOUNTER 2024-07-31 02:48 | Emergency (ER) | payer MEDICAID ==
[~2024-07-31] VITALS: Ht 170.2 cm; Wt 90.1 kg
[2024-07-31 02:52] VITALS: BP 139/92; PULSE 85; RESP 16; O2SAT 97
[2024-07-31 05:53] VITALS: TEMP 97.9
[2024-07-31] MEDS: ibuprofen tablet 400 MG TABLET PO ONE (05:56)
== END 2024-07-31 05:58 | disposition home or self-care (01) ==
LOC: ER 02:49
DX: H92.02 Otalgia, left ear (principal); K21.9 Gastro-esophageal reflux disease without esophagitis; F41.9 Anxiety disorder, unspecified; F32.A Depression, unspecified; Z79.899 Other long term (current) drug therapy
CPT/HCPCS: 99282

== ENCOUNTER 2025-03-02 18:40 | Emergency (ER) | payer MEDICAID ==
[~2025-03-02] VITALS: Ht 172.7 cm; Wt 85.6 kg
[~2025-03-02 18:40] MED LIST changes: +NYST30CR28 TOP; -NYST30CR34 TOP
[2025-03-02 19:02] VITALS: RESP 15
--- NOTE | 2025-03-02 20:34 | RADIOLOGY REPORT ---
SCROTAL ULTRASOUND REASON FOR EXAM: LEFT TESTICLE PAIN. The patient indicates pain in the area of the left inguinal canal and left testicle. COMPARISON: US US TESTIC/W/DUPLEX on DOS: 06/03/24, US TESTIC on DOS: 09/25/22, US TESTIC on DOS: 03/30/20 TECHNIQUE: Real-time sector scans and duplex color flow Doppler imaging of the scrotal contents was performed. FINDINGS: The right testicle measures 2.6 x 3.3 x 3.8 cm. The left testicle measures 3.6 x 3.2 x 3.0 cm. No testicular mass is identified. Expected flow is seen within the right and left testicle. There is no hyperemia. There is no significant hydrocele. No varicocele is identified. The epididymides are normal in size. IMPRESSION: Normal appearance of the testes and epididymides. The patient indicated pain in the area of the left inguinal canal. No mass or fluid collection is identified in the left scrotum or left inguinal canal.
[2025-03-02 22:09] VITALS: BP 128/89; PULSE 75; TEMP 98; O2SAT 98
--- NOTE | 2025-03-02 23:06 | Physician Documentation ---
History of Present Illness ~ Chief Complaint: Testicular Pain Stated Complaint: GROIN PAIN Time Seen by MD: 23:01 Primary Medical Doctor: [facility] HPI Is a 29-year-old male that presents to the emergency department for evaluation of left-sided testicular pain x1 day. Patient reports that he has previously had concerns for testicular torsion but has not ever had testicular torsion. Patient reports that his father has a history of hernia but he has never himself has a history of hernia. Patient denies any redness or swelling of the testicle at this time and any trauma to the testicle. Medication Reconciliation Allergies: Coded Allergies: No Known Allergies (Unverified , 03/02/25) Scheduled Albuterol Sulfate (Proventil Hfa), 2 PUFFS INH Q6H Clonazepam (Clonazepam), 1 TABLET PO BID Diazepam (Valium), 1 TABLET PO BID Gentamicin Sulfate (Gentak), 2 DROP LEFTEYE TID Ketoconazole (Ketoconazole), 1 APPLIC TP TID Levetiracetam (Keppra), 1,000 MG PO BID, (Reported) Levetiracetam (Keppra), 2 TAB PO Q12H Neomy Sulf/Polymyx B Sulf/Hc (Cortisporin Otic Suspension), 2 DROP OT QID Nystatin (Nystatin), 1 APPLIC TOP Q8H Oxcarbazepine (Oxcarbazepine), 600 MG PO TID, (Reported) Oxcarbazepine (Oxcarbazepine), 600 MG PO TID Oxcarbazepine (Oxcarbazepine), 1 TAB PO Q12H Oxcarbazepine (Oxcarbazepine), 1 TAB PO Q12H Pantoprazole Sodium (PROTONIX tablet), 1 TAB PO DAILY Potassium Chloride (Potassium Chloride), 1 TAB PO DAILY Scheduled PRN Loperamide HCl (Imodium A-D), 1 TAB PO Q2H PRN for diarrhea Ondansetron Hcl (Zofran), 1 TAB PO Q6H PRN for nausea Past Medical History 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 Physical Exam Vital Signs: Temperature: 98.0, Source: Temporal, Heart Rate: 75, Respiratory Rate: 15, BP: 128/89, Pulse Oximetry: 98, Weight: 85.600 Physical Exam VITALS: Reviewed and as above. GENERAL: Alert, no apparent distress. HEENT: Normocephalic, atraumatic, PERRL, EOMI, dry mucosa, no erythema RESPIRATORY: Lungs clear, normal breath sounds, no respiratory distress. CHEST: No accessory muscle use, no retractions CV: Regular rate, rhythm, no edema, no murmur, No: JVD GI: Soft, non-tender, bowels sounds present, no rebound, guarding, or rigidity, unable to reproduce testicular pain with examination or palpation. BACK: No CVA tenderness, or swelling MUSCULOSKELETAL No deformities, no edema SKIN: Warm and dry, no rash NEURO: Oriented x4, No motor or sensory deficit PSYCH: Normal mood and affect, no agitation Progress Results/Orders Results/Orders Vital Signs 03/02/25 03/02/25 19:02 22:09 Temp 96.8 98.0 Pulse 89 75 Resp 15 B/P (MAP) 136/96 128/89 (102) Pulse Ox 100 98 Medical Decision Making Findings Abdominal radiates into the left testicle without peritoneal signs. No evidence of acute abdomen at this time. Well appearing. Given work up, low suspicion for acute hepatobiliary disease (including acute cholecystitis or cholangitis), acute pancreatitis (neg lipase), PUD (including gastric perforation), acute infectious processes (pneumonia, hepatitis, pyelonephritis), acute appendicitis, vascular catastrophe, bowel obstruction, viscus perforation, or testicular torsion, diverticulitis. Presentation not consistent with other acute, emergent causes of abdominal or testicular pain at this time. Patient will primary care provider if symptoms persist. Patient will return to the emergency department with any worsening of his current symptoms or any additional concerning symptoms that we discussed here today i.e. edema, erythema fevers nausea vomiting increas ed pain or any other concerning symptoms. Urinary Diff Dx:Considerations: Include: AAA, Aortic dissection, Appendicitis, Appendicitis train, Bowel obstruction, Bladder outlet obstruc., Cholelithiasis, Choleangitis, Cholecystitis, DJD, Epididymitis, Hepatitis, HNP, Impaction, Musculoskeletal pain, Pancreatitis, Postoperative Comp., Prostatitis, Pyelonephritis, Renal failure, Renal infarction, Strain, Urolithiasis, Urinary Obstruction, Urethritis, Urinary retention, UTI, Other Genital Diff Dx:Considerations: Include: Abscess, Balanitis, Balanoposthitis, Cellulitis, Epididymitis, Entrapment injury, Lise's gangrene, Foreign body, Facture penis, Hydrocele, Inguinal hernia, Post-op Complication, Paraphimosis, Prostatitis, Priapism, Syphilis, Testicular torsion, Torsion-epididymis, Torsion-appendiceal, Urinary retention, Urethritis, Urethritis-chlamydial, Urethritis-gonococcal, UTI, Other Departure Disposition: HOME / SELF CARE / HOMELESS Impression: Primary Impression: Pain in testicle Condition: Stable Discharge Instructions: Testicular Self-Exam Additional Instructions: Abdominal radiates into the left testicle without peritoneal signs. No evidence of acute abdomen at this time. Well appearing. Given work up, low suspicion for acute hepatobiliary disease (including acute cholecystitis or cholangitis), acute pancreatitis (neg lipase), PUD (including gastric perforation), acute infectious processes (pneumonia, hepatitis, pyelonephritis), acute appendicitis, vascular catastrophe, bowel obstruction, viscus perforation, or testicular torsion, diverticulitis. Presentation not consistent with other acute, emergent causes of abdominal or testicular pain at this time. Patient will primary care provider if symptoms persist. Patient will return to the emergency department with any worsening of his current symptoms or any additional concerning symptoms that we discussed here today i.e. edema, erythema fevers nausea vomiting increased pain or any other concerning symptoms. Referrals: NO PRIMARY CARE PROVIDER (PCP) Education Educated: Patient Educated regarding: diagnosis, treatment, need for follow up Signature Scribe Signature: A Attestation: Scribed for Emergency,Department by PEE Espino . 03/02/25 23:08 JUNG VILLEGAS Mar 02, 2025 23:06
== END 2025-03-02 23:09 | disposition home or self-care (01) ==
LOC: ER 18:41
DX: N50.812 Left testicular pain (principal); K21.9 Gastro-esophageal reflux disease without esophagitis; F41.9 Anxiety disorder, unspecified; F32.A Depression, unspecified
CPT/HCPCS: 76870; 93976; 99284

== ENCOUNTER 2025-03-08 20:40 | Emergency (ER) | payer MEDICAID ==
[~2025-03-08] VITALS: Ht 170.2 cm; Wt 84.0 kg
[2025-03-08 20:52] VITALS: BP 116/78; PULSE 76; RESP 20; O2SAT 96
--- NOTE | 2025-03-08 21:59 | Physician Documentation ---
History of Present Illness ~ Chief Complaint: Arm Pain Stated Complaint: ARM PAIN Time Seen by MD: 21:42 Primary Medical Doctor: [facility] HPI Is a 29-year-old male that presents to the emergency department for complaints of shooting pains up and down his left forearm. 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 Reports that the pain is better today but has been persistent over the last several days. Denies any injury or trauma to his arm redness swelling fever chills or any other symptoms at this time. Tetanus within 5 years: Yes Medication Reconciliation Allergies: Coded Allergies: No Known Allergies (Unverified , 03/02/25) Scheduled Albuterol Sulfate (Proventil Hfa), 2 PUFFS INH Q6H Clonazepam (Clonazepam), 1 TABLET PO BID Diazepam (Valium), 1 TABLET PO BID Gentamicin Sulfate (Gentak), 2 DROP LEFTEYE TID Ketoconazole (Ketoconazole), 1 APPLIC TP TID Levetiracetam (Keppra), 1,000 MG PO BID, (Reported) Levetiracetam (Keppra), 2 TAB PO Q12H Neomy Sulf/Polymyx B Sulf/Hc (Cortisporin Otic Suspension), 2 DROP OT QID Nystatin (Nystatin), 1 APPLIC TOP Q8H Oxcarbazepine (Oxcarbazepine), 600 MG PO TID, (Reported) Oxcarbazepine (Oxcarbazepine), 600 MG PO TID Oxcarbazepine (Oxcarbazepine), 1 TAB PO Q12H Oxcarbazepine (Oxcarbazepine), 1 TAB PO Q12H Pantoprazole Sodium (PROTONIX tablet), 1 TAB PO DAILY Potassium Chloride (Potassium Chloride), 1 TAB PO DAILY Scheduled PRN Loperamide HCl (Imodium A-D), 1 TAB PO Q2H PRN for diarrhea Ondansetron Hcl (Zofran), 1 TAB PO Q6H PRN for nausea Past Medical History 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 Physical Exam Vital Signs: Temperature: 97.0, Heart Rate: 76, Respiratory Rate: 20, BP: 116/78, Pulse Oximetry: 96, Weight: 84.000 Oxygen Flow Rate: 0 Physical Exam VITALS: Reviewed and as above. GENERAL: Alert, no apparent distress. HEENT: Normocephalic, atraumatic, PERRL, EOMI, dry mucosa, no erythema RESPIRATORY: Lungs clear, normal breath sounds, no respiratory distress. CHEST: No accessory muscle use, no retractions CV: Regular rate, rhythm, no edema, no murmur, No: JVD GI: Soft, non-tender, bowels sounds present, no rebound, guarding, or rigidity BACK: No CVA tenderness, or swelling MUSCULOSKELETAL No deformities, no edema, or erythema or warmth noted, equal strength noted bilateral upper extremities discomfort with exam. SKIN: Warm and dry, no rash NEURO: Oriented x4, No motor or sensory deficit PSYCH: Normal mood and affect, no agitation Progress Results/Orders Results/Orders Vital Signs 03/08/25 20:52 Temp 97.0 Pulse 76 Resp 20 B/P (MAP) 116/78 Pulse Ox 96 O2 Flow Rate 0 Medical Decision Making Findings Patient presents with shooting pains [id number] in the left forearm times 2-3 days. Given history, exam and workup patient likely has arthritis. I have low suspicion for fracture, dislocation, significant ligamentous injury, septic arthritis, gout flare, new autoimmune arthropathy, or gonococcal arthropathy. For inflammation and overuse injury secondary to video game pl aying at this time. I have recommended the patient take ibuprofen every 6 hours for the next 24 hours to help reduce inflammation. Patient will follow up with his primary care provider. We will return to the emergency department with any worsening of his current symptoms or any additional concerning symptoms that we discussed here today i.e. swelling redness warmth increased pain inability to bend his arm numbness tingling or any other concerning symptoms. General Diff Dx:Considerations: Include: Abrasion, Contusion, Fracture, Hematoma, Laceration, Malunion, Neurovascular injury, Open fracture, Sprain, Ulcer, Other Elbow Diff Dx:Considerations: Include: Abrasion, Arthritis, Contustion, DJD, Fracture-humerus, Fracture-radial head, Fracture-radius, Fracture-ulna, Gout, Hematoma, Laceration, Neurovascular injury, Olecranon bursitis, Open fracture, Osteomyelitis, Radial head subluxation, Rheumatoid arthritis, Septic, Sprain, Ulcer, Other Wrist Diff Dx:Considerations: Include: Abrasion, Arthritis, DJD, Gout, Rheumatoid, Septic, Carpal tunnel snydrome, Contusion, Dislocation, Fracture- carpal, Fracture-radius, Fracture-ulna, Ganglion, Laceration, Neurovascular injury, Open fracture, Strain, Other Departure Disposition: 01 HOME / SELF CARE / HOMELESS Impression: Primary Impression: Muscle strain Additional Impressions: Nerve pain Overuse injury Condition: Stable Discharge Instructions: Muscle Strain, [id number] Additional Instructions: Patient presents with shooting pains [id number] in the left forearm times 2-3 days. Given history, exam and workup patient likely has arthritis. I have low suspicion for fracture, dislocation, significant ligamentous injury, septic arthritis, gout flare, new autoimmune arthropathy, or gonococcal arthropathy. For inflammation and overuse injury secondary to video game playing at this time. I have recommended the patient take ibuprofen every 6 hours for the next 24 hours to help reduce inflammation. Patient will follow up with his primary care provider. We will return to the emergency department with any worsening of his current symptoms or any additional concerning symptoms that we discussed here today i.e. swelling redness warmth increased pain inability to bend his arm numbness tingling or any other concerning symptoms. Referrals: NO PRIMARY CARE PROVIDER (PCP) Education Educated: Patient Educated regarding: diagnosis, treatment, need for follow up Signature Scribe Signature: A Attestation: Scribed for Jung Villegas by PEE Espino . 03/08/25 22:17 JUNG VILLEGAS Mar 08, 2025 21:59
[2025-03-08 22:18] VITALS: TEMP 97
== END 2025-03-08 22:22 | disposition home or self-care (01) ==
LOC: ER 20:40
DX: S56.812A Strain of other muscles, fascia and tendons at forearm level, left arm, initial encounter (principal); M79.2 Neuralgia and neuritis, unspecified; K21.9 Gastro-esophageal reflux disease without esophagitis; F41.9 Anxiety disorder, unspecified; F32.A Depression, unspecified; Z79.899 Other long term (current) drug therapy; X58.XXXA Exposure to other specified factors, initial encounter; Y93.89 Activity, other specified; Y92.89 Other specified places as the place of occurrence of the external cause; Y99.8 Other external cause status
CPT/HCPCS: 99282